=== PATIENT | female | born 1995 | race Caucasian/White ===

== ENCOUNTER → 2021-02-08 13:48 | Outpatient (BNVA) | payer MEDICAID, SELFPAY | PROVIDERS: PCP Internal Medicine; Visit Provider Nurse Practitioner Family | DX: M53.3 Sacrococcygeal disorders, not elsewhere classified (principal); M47.816 Spondylosis without myelopathy or radiculopathy, lumbar region; M25.552 Pain in left hip; M25.551 Pain in right hip; M25.562 Pain in left knee; M25.561 Pain in right knee | CPT/HCPCS: 99202 ==

== ENCOUNTER → 2021-02-23 10:08 | Outpatient (BNVA) | payer MEDICAID, SELFPAY | PROVIDERS: PCP Physician Assistant; Visit Provider Nurse Practitioner Family ==

== ENCOUNTER 2021-03-18 09:38 | Outpatient (REF) | payer MEDICAID, SELFPAY ==
--- NOTE | ~2021-03-18 | XR_ITS ---
EXAMINATION: XR SHOULDER, RIGHT CLINICAL INFORMATION: Shoulder pain COMPARISON: None TECHNIQUE: Three views of the right shoulder. FINDINGS: The bones and soft tissues are normal. No fracture. Glenohumeral and acromioclavicular alignment is anatomic with normal joint space. No abnormal soft tissue calcifications. XR/XR shoulder RT min 2V IMPRESSION: Normal right shoulder.
== END 2021-03-18 09:39 | disposition home or self-care (01) ==
LOC: HO.HOSX 09:38
PROVIDERS: Visit Provider Physician Assistant
DX: M75.101 Unspecified rotator cuff tear or rupture of right shoulder, not specified as traumatic (principal)
CPT/HCPCS: 73030; 99202

== ENCOUNTER → 2021-04-29 10:10 | Outpatient (BNVA) | payer MEDICAID, SELFPAY | PROVIDERS: PCP Physician Assistant; Visit Provider Physician Assistant | DX: M75.101 Unspecified rotator cuff tear or rupture of right shoulder, not specified as traumatic (principal) | CPT/HCPCS: 20610; 99212; J1040 ==

== ENCOUNTER 2021-12-16 16:13 | Emergency (ER) | payer MEDICAID, SELFPAY ==
[2021-12-16 16:24] VITALS: BP 143/80; PULSE 87; RESP 18; TEMP 36.2; O2SAT 98; BMI 35.5
--- NOTE | 2021-12-16 18:37 | ED_ITS ---
HPI - Extremity Problem General Chief complaint: Extremity Problem Stated complaint: Lower back & Leg/hip pain Time Seen by Provider: 12/16/21 18:37 Source: patient Mode of arrival: ambulatory Limitations: no limitations History of Present Illness HPI Narrative: 26 yo female with history of degenerative disc disease, chronic pain, bipolar disorder & migraines who presents to the ER for worsening low back pain rad iating down to her buttocks and legs bilaterally. She has a history of the same. No trauma or injury. She states she took herself off of all of her medications in the last couple of weeks because nothing was working. She reports she now has worsening pain in the back radiating down the legs. She says she cannot sleep because of the pain. She reports she cannot eat because of the pain. She denie s any bladder or bowel incontinence. She denies any saddle paresthesias. She reports the pain at time she has into the groin area. MD Complaint: extremity pain and other (Low back pain) Onset (ago): day(s) Pain Consistency: constant Location: left, right and lower extremity Severity scale (1-10): 8 Quality: stabbing and sharp Radiation: distal Relieving factors: nothing Exacerbating factors: range of motion, walking and palpation Associated symptoms: denies other symptoms Related Data Home Medications Medication Instructions Recorded Confirmed albuterol sulfate 90 mcg/actuation 2 puff INHALATION Q6H PRN 02/08/21 05/05/21 aerosol inhaler (ProAir HFA) docusate sodium 100 mg capsule 100 mg PO BID 02/08/21 05/05/21 duloxetine 30 mg capsule,delayed 90 mg PO DAILY 02/08/21 05/05/21 release ferrous sulfate 325 mg (65 mg 325 mg PO DAILY 02/08/21 05/05/21 iron) tablet fluticasone propionate 220 1 puff INHALATION BID 02/08/21 05/05/21 mcg/actuation HFA aerosol inhaler (Flovent HFA) fluticasone propionate 50 2 spray INTRANASAL DAILY 02/08/21 05/05/21 mcg/actuation nasal spray,suspension (Allergy Relief (fluticasone)) levocetirizine 5 mg tablet 5 mg PO DAILY 02/08/21 05/05/21 montelukast 10 mg tablet 10 mg PO DAILY 02/08/21 05/05/21 (Singulair) norethindrone (contraceptive) 0.35 0.35 mg PO DAILY 02/08/21 05/05/21 mg tablet olanzapine 10 mg tablet 5 mg PO BID tab 02/08/21 05/05/21 ondansetron HCl 4 mg tablet 4 mg PO Q6H 02/08/21 05/05/21 pantoprazole 40 mg tablet,delayed 40 mg PO DAILY 02/08/21 05/05/21 release rizatriptan 10 mg tablet See Rx Instructions PO .COMPLEX 02/08/21 05/05/21 sucralfate 1 gram tablet (Carafate) 1 g PO BID 02/08/21 05/05/21 topiramate 50 mg tablet 50 mg PO BID 02/08/21 05/05/21 amitriptyline 25 mg tablet 50 mg PO BEDTIME 05/05/21 07/12/21 Previous Rx's Medication Instructions Recorded cyclobenzaprine 10 mg tablet 10 mg PO TID PRN #14 tab 12/16/21 lidocaine 5 % topical patch 1 patch TOPICAL DAILY #15 ea 12/16/21 prednisone 20 mg tablet 40 mg PO DAILY #10 tab 12/16/21 Allergies Allergy/AdvReac Type Severity Reaction Status Date / Time amoxicillin AdvReac Intermediate diarrhea Verified 05/05/21 13:33 NSAIDS (Non-Steroidal AdvReac Intermediate intolerance Verified 05/05/21 13:33 Anti-Inflamma Review of Systems Review of Systems: Constitutional: No Fever, No Chills ENT/Mouth: No sore throat, No Rhinorrhea, No Swallowing Difficulty Cardiovascular: No Chest Pain, No SOB, No Orthopnea, No Edema Respiratory: No Cough, No Sputum, No Wheezing, No dyspnea Gastrointestinal: + Nausea, No Vomiting, No Diarrhea, No abdominal Pain Genitourinary: No Dysuria, No Urinary Frequency, No Hematuria Musculoskeletal: + joint pain, + Myalgias Skin: No Skin Lesions, No rash Neuro: No Weakness, No Numbness, No Dizziness, + Headache Psych: No Anxiety/Panic, + Depression, No SI Heme/Lymph: No Bruising, No Lymphadenopathy Endocrine: No Polyuria, No Polydipsia PMFSH Past Medical History Medical History (Updated 12/16/21 @ 19:35 by JOHAN Fernandez) Adenomyosis Anxiety Arthritis, lumbar spine Asthma COVID-19 vaccine series completed Depression Eczema Endometriosis Gastroparesis GERD (gastroesophageal reflux disease) Hypertension Iron deficiency anemia Migraines Paranoia Surgical History History of appendectomy Hx of exploratory laparotomy [place] teeth removed Social History Social History (Updated 07/12/21 @ 18:35 by Nupur Hickman RN) Are you a primary customer care professional to a significant other at home: No Do you presently have visiting nurse or other home services: No Patient Tobacco Use Status: Never used Tobacco Substance Use Type: Marijuana Advance Directives: No Advance Directives Information Provided: No Current occupational status: unemployed Physical Exam Vital Signs: Vital Signs: Last Vital Signs Temp 97.2 F 12/16/21 16:24 Pulse 87 12/16/21 16:24 Resp 18 12/16/21 16:24 BP 143/80 H 12/16/21 16:24 Pulse Ox 98 12/16/21 16:24 BMI result Body Mass Index 35.5 Appearance: Alert. Oriented X3. No acute distress. HEENT: normal external inspection Neck: Normal inspection. Neck supple. CVS: Normal heart rate and rhythm. Pulses normal. Respiratory: No respiratory distress. Breath sounds normal. Abdomen: Soft and nontender. +BS x4 Back: normal inspection, tenderness of the middle, left and right low lumbar area with minor soft tissue spasm. +straight leg raise test bilaterally at 60 degrees. +SI joint tenderness Skin: Skin warm and dry. Normal skin color. Normal skin turgor. No rashes. Extremities: No lower extremity edema. Neuro: Oriented X 3. No motor deficit. No sensory deficit. Steady gait Course Course Course Narrative: 26-year-old female presents to the ER with acute on chronic nontraumatic lower back pain that radiates to her buttocks and bilateral lower extremities. She has a history of the same. She has no red flag symptoms of low back pain. She took all herself off of all of her for medications with worsening symptoms. She has the therapist and psychiatrist who she plans follow-up with early next week. Will treat her pain now with IM Toradol, dose of oxycodone to control the pain. She is on the unable to take oral NSAIDs due to GI issues. Will reassess her pain. Reevaluation(s) Reevaluation #1: Pain is improved. She is stable for discharge home. Encourage follow-up with her PCP early next week. Discharge Plan Discharge Clinical Impression: Sciatica Patient Disposition: Home, Self-Care Additional Instructions: No bending, lifting or twisting. Use ice several times per day for 20 minutes at a time for the next 48 hours and then change to heat. Take medications as prescribed to help with pain and discomfort. Follow up with your Primary Care Doctor SASHA as well as your therapist and psychiatrist. If your pain worsens, if you develop new numbness, tingling, weakness, loss of function or incontinence call 911 or come back to the ER right away for evaluation. Prescriptions: New prednisone 20 mg tablet 40 mg PO DAILY Qty: 10 0RF cyclobenzaprine 10 mg tablet 10 mg PO TID PRN (Reason: muscle spasm) Qty: 14 0RF lidocaine 5 % adhesive patch,medicated 1 patch topical DAILY Qty: 15 0RF Rx Instructions: leave on most painful area for up to 12 hrs No Action amitriptyline 25 mg Tablet 50 mg PO BEDTIME 0RF olanzapine 10 mg tablet 5 mg PO BID 0RF sucralfate [Carafate] 1 gram tablet 1 g PO BID 0RF fluticasone propionate [Allergy Relief (fluticasone)] 50 mcg/actuation spray,suspension 2 spray intranasal DAILY 0RF Rx Instructions: administer into each nostril norethindrone (contraceptive) 0.35 mg tablet 0.35 mg PO DAILY 0RF levocetirizine 5 mg tablet 5 mg PO DAILY 0RF pantoprazole 40 mg tablet,delayed release (DR/EC) 40 mg PO DAILY 0RF topiramate 50 mg tablet 50 mg PO BID 0RF montelukast [Singulair] 10 mg tablet 10 mg PO DAILY 0RF ferrous sulfate 325 mg (65 mg iron) tablet 325 mg PO DAILY 0RF duloxetine 30 mg capsule,delayed release(DR/EC) 90 mg PO DAILY 0RF Flovent HFA 220 mcg/actuation HFA aerosol inhaler 1 puff inhalation BID 0RF albuterol sulfate [ProAir HFA] 90 mcg/actuation HFA aerosol inhaler 2 puff inhalation Q6H PRN (Reason: Wheezing) 0RF ondansetron HCl 4 mg tablet 4 mg PO Q6H 0RF rizatriptan 10 mg tablet See Rx Instructions PO .COMPLEX 0RF Rx Instructions: take 1 tab at onset of headache; if no relief may repeat 1 tab after at least 2 hrs; max = 3 tabs/24 hr PO docusate sodium 100 mg capsule 100 mg PO BID 0RF Interventions: ED Discharge Assessment Last Done: 12/16/21 19:56 Discharge Date/Time: 12/16/21 19:56
[2021-12-16] MEDS: HYDROcodone Bit/Acetam 5/325 TABLET 1 TAB PO (19:22)
[2021-12-16] MEDS: Ketorolac Tromethamine 30 MG/ML VIAL IVPUSH (19:22)
== END 2021-12-16 19:56 | disposition home or self-care (01) ==
PROVIDERS: Emergency Provider Internal Medicine
DX: M54.40 Lumbago with sciatica, unspecified side (principal); I10 Essential (primary) hypertension; J45.909 Unspecified asthma, uncomplicated
CPT/HCPCS: 96374; 99282; 99283; 99284; J1885